=== PATIENT | female | born 2000 | race Caucasian/White ===

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

== ENCOUNTER 2023-05-04 21:08 | Emergency (ER) | payer OTHER, MEDICAID ==
[~2023-05-04] VITALS: Ht 160 cm; Wt 58.0 kg
[2023-05-04 21:37] VITALS: BP 132/85
[2023-05-04] MEDS ORDERED: ALPRAZOLAM0.5 M2 PO (22:05)
[2023-05-04 22:50] VITALS: BP 120/81
[2023-05-04 23:04] VITALS: BP 118/74
== END 2023-05-04 23:04 | disposition home or self-care (01) | DRG 880 ==
LOC: ED 21:08
DX: F41.0 Panic disorder [episodic paroxysmal anxiety] (principal); Z63.0 Problems in relationship with spouse or partner

== ENCOUNTER 2023-10-14 12:10 | Emergency (ER) | payer OTHER ==
[2023-10-14] VITALS (13 sets, daily range): BP systolic 102–124; BP diastolic 62–83
[~2023-10-14] VITALS: Ht 160 cm; Wt 56.6 kg
[~2023-10-14 12:10] MED LIST changes: +ALPRAZOLAM0.5 M2 PO
[2023-10-14 13:41] LABS: BASO% 0.2 % (0-3); EOS% 0.5 % (0-8); IMMATURE GRANULOCYTES 0.1 % (0.0-5.0); LYMPH% 24.3 % (15-41); MEAN CELL VOLUME 93.3 fL CALC (80.0-100.0); MEAN CORPUSCULAR HGB 31.1 pG CALC (26.0-32.0); MEAN CORPUSCULAR HGB CONC 33.3 g/dL CAL (32.0-36.0); MONO% 3.6 % (2-13); NEUT# 10.55 thou/uL (2.00-7.15); NEUT% 71.3 % (42-76); RED BLOOD COUNT 4.18 mill/uL (4.20-5.60); RED CELL DISTRI WIDTH 12.3 % (11.5-15.5)
[2023-10-14 13:50] LABS: URINE BILIRUBIN - DIPSTICK Negative (NEGATIVE); URINE BLOOD DIPSTICK Negative (NEGATIVE); URINE GLUCOSE - DIPSTICK Negative (NEGATIVE); URINE KETONE Trace mg/dL (NEGATIVE); URINE LEUK ESTERASE Trace (NEGATIVE); URINE NITRITE - DIPSTICK Negative (Negative); URINE PH 6.5 (4.5-8.0); URINE PROTEIN - DIPSTICK Trace mg/dL (NEG-TRACE); URINE SPECIFIC GRAVITY 1.025; URINE UROBILINOGEN - DIPSTICK 0.2 E.U./dL (0.2)
[2023-10-14 13:56] LABS: URINE COLOR Yellow
[2023-10-14 14:01] LABS: ALBUMIN 4.3 g/dL (3.2-5.0); ALKALINE PHOSPHATASE 47 u/l (38-126); ANION GAP 11 (6-22 (CALC)); BILIRUBIN, TOTAL 0.4 mg/dL (0.02-1.3); BUN 8 mg/dL (7-17); BUN/CREATININE RATIO 19 (12-20 (CALC)); CARBON DIOXIDE 22 mmol/l (22-30); CHLORIDE 111 mmol/l (95-108); CREATININE 0.4 mg/dL (0.5-1.0); GFR FOR AFR.AMER. > 60 ML/MIN (>=60 (CALC)); GFR OTHER RACES > 60 ML/MIN (>=60 (CALC)); POTASSIUM 4.1 mmol/l (3.5-5.1); SGOT/AST 20 u/l (14-36); SODIUM 139 mmol/l (137-146); TOTAL PROTEIN 6.7 g/dL (6.3-8.2)
== END 2023-10-14 17:25 | disposition left against medical advice (07) | DRG 833 ==
LOC: ED 12:10
PROVIDERS: Emergency Medicine
DX: O26.851 Spotting complicating pregnancy, first trimester (principal); O26.891 Other specified pregnancy related conditions, first trimester; R10.2 Pelvic and perineal pain; Z3A.01 Less than 8 weeks gestation of pregnancy